=== PATIENT | male | born 1955 | race Caucasian/White ===

== ENCOUNTER → 2022-12-31 11:54 | Outpatient (CLI) | payer MEDICARE, SELFPAY ==
[2022-12-31 13:04] LABS: Appearance Urine UA CLEAR; Bilirubin Urine UA NEGATIVE (NEGATIVE); Color Urine UA YELLOW; Glucose Urine UA NEGATIVE (Negative); Ketones Urine UA NEGATIVE (NEGATIVE); Leukocyte Esterase Urine UA NEGATIVE (NEGATIVE); Nitrite Urine UA NEGATIVE (Negative); Occult Blood Urine UA NEGATIVE (Negative); Protein Urine UA NEGATIVE (Negative); Urobilinogen Urine UA 0.2 E.U./dL (0.2); pH Urine UA 6.5 (4.5-8.0)
[2022-12-31 13:22] LABS: Add Manual Diff / Slide Review NO; Basophils Absolute Auto 100 /uL (0-100); Basophils Percent Auto 1.4 % (0-2); Eosinophils Absolute Auto 200 /uL (0-450); Eosinophils Percent Auto 4.1 % (2-4); Hematocrit 41.4 % (41-53); Hemoglobin 14.2 g/dL (13.5-17.5); Lymphocytes Absolute Auto 1300 /uL (1100-4500); Lymphocytes Percent Auto 23.8 % (25-40); Mean Corpuscular HGB Conc 34.4 % (30-36); Mean Corpuscular Volume 93.2 fL (80-100); Monocytes Absolute Auto 400 /uL (0-900); Neutrophils Absolute Auto 3300 /uL (1500-7000); Neutrophils Percent Auto 62.7 % (50-75); Platelet Count 227 X10^3/uL (150-400); Red Blood Cell Count 4.44 X10^6/uL (4.5-5.9); Red Cell Distribution Width 12.6 % (11.6-14.8); White Blood Cell Count 5.3 X10^3/uL (4.5-11.0)
[2022-12-31 13:34] LABS: Bacteria Urine None Seen; Culture Indicated Urine Cult Not Indicated; RBC Urine None Seen (0-5/HPF); Squamous Epithelial Cell Urine 0-1 /HPF (0-5/HPF); WBC Urine None Seen (0-5/HPF)
[2022-12-31 13:36] LABS: BUN Creatinine Ratio 21.4 (6-22); Blood Urea Nitrogen 18 mg/dL (9-20); Calcium 9.3 mg/dL (8.4-10.2); Carbon Dioxide 31 mmol/L (22-32); Chloride 101 mmol/L (98-107); Estimated Glomerular Filt Rate > 60 mL/min (>60); Glucose 98 mg/dL (80-110); HEMOLYSIS < 15 (0-50); Potassium 4.5 mmol/L (3.4-5.1); Sodium 138 mmol/L (137-145)
[2023-01-01 11:00] LABS: x Labcorp Estim. Avg Glu (eAG) 108 mg/dL (.); x Labcorp Hemoglobin A1c 5.4 % (4.8-5.6)
== END ==
PROVIDERS: PCP Family Medicine; Referring Provider Orthopaedic Surgery; Visit Provider Orthopaedic Surgery
DX: Z01.818 Encounter for other preprocedural examination (principal); R73.9 Hyperglycemia, unspecified; Z01.812 Encounter for preprocedural laboratory examination; N39.0 Urinary tract infection, site not specified
CPT/HCPCS: 36415; 80048; 81001; 83036; 85025; 93005

== ENCOUNTER → 2023-03-19 13:49 | Outpatient (CLI) | payer MEDICARE, SELFPAY ==
[2023-03-19 14:58] LABS: Add Manual Diff / Slide Review NO; Basophils Absolute Auto 0 /uL (0-100); Basophils Percent Auto 0.5 % (0-2); Eosinophils Absolute Auto 300 /uL (0-450); Eosinophils Percent Auto 2.9 % (2-4); Hematocrit 39.3 % (41-53); Hemoglobin 13.6 g/dL (13.5-17.5); Lymphocytes Absolute Auto 1600 /uL (1100-4500); Lymphocytes Percent Auto 18.4 % (25-40); Mean Corpuscular HGB Conc 34.6 % (30-36); Mean Corpuscular Hemoglobin 32.3 PG (26-34); Mean Corpuscular Volume 93.4 fL (80-100); Monocytes Absolute Auto 500 /uL (0-900); Monocytes Percent Auto 5.7 % (3-14); Neutrophils Absolute Auto 6200 /uL (1500-7000); Neutrophils Percent Auto 72.5 % (50-75); Platelet Count 269 X10^3/uL (150-400); Red Blood Cell Count 4.21 X10^6/uL (4.5-5.9); Red Cell Distribution Width 12.7 % (11.6-14.8); White Blood Cell Count 8.6 X10^3/uL (4.5-11.0)
[2023-03-19 15:44] LABS: Thyroid Stimulating Hormone 3.07 uIU/mL (0.47-4.68)
[2023-03-19 15:45] LABS: Prostate Specific Antigen 4.09 ng/mL (0.10-4.00)
== END ==
PROVIDERS: PCP Family Medicine; Referring Provider Family Medicine; Visit Provider Family Medicine
DX: R97.20 Elevated prostate specific antigen [PSA] (principal); Z86.39 Personal history of other endocrine, nutritional and metabolic disease
CPT/HCPCS: 36415; 84153; 84443; 85025

== ENCOUNTER → 2023-08-25 09:30 | Outpatient (CLI) | payer MEDICARE, SELFPAY ==
--- NOTE | 2023-08-25 | DI.NM.S_ITS ---
PROCEDURE: NM BONE SCAN WHOLE BODY RADIOPHARMACEUTICAL: 20.2 mCi Tc-99m MDP IV. INDICATIONS: PAIN IN RIGHT KNEE TECHNIQUE: Delayed whole-body scintigrams were obtained approximately 3-4 hours after intravenous injection of radiotracer. Anterior and posterior views were acquired from vertex to feet. Additional left and right oblique views of the knees were obtained. COMPARISON: [facility] [place], CR, XR KNEE ARTHRITIC SERIES , 07/29/2023, 10:08. FINDINGS: Physiologic uptake is noted within the kidneys and bladder. Photopenia is identified in the medial compartments of the knees bilaterally consistent with hemiarthroplasty. There is increased uptake within the lateral compartments of the knees bilaterally, small bones of the feet, shoulder girdles, 1st CMC joints. Multiple areas of increased uptake are present within the cervical, and thoracic spine. IMPRESSION: Multifocal areas of uptake identified most suggestive of degenerative change. If concern persists for increased pain at the arthroplasty sites, triple phase bone scan is recommended. Dictated by: Clara Gill M.D. on 08/25/2023 at 16:13 Approved by: Clara Gill M.D. on 08/25/2023 at 16:15
== END ==
PROVIDERS: PCP Family Medicine; Referring Provider Orthopaedic Surgery; Visit Provider Orthopaedic Surgery
DX: M25.561 Pain in right knee (principal)
CPT/HCPCS: 78306; A9503

== ENCOUNTER → 2023-09-28 09:49 | Outpatient (CLI) | payer MEDICARE, SELFPAY ==
[2023-09-28 11:21] LABS: Add Manual Diff / Slide Review NO; Basophils Absolute Auto 100 /uL (0-100); Basophils Percent Auto 1.1 % (0-2); Eosinophils Absolute Auto 200 /uL (0-450); Eosinophils Percent Auto 3.3 % (2-4); Hematocrit 43.2 % (41-53); Hemoglobin 14.8 g/dL (13.5-17.5); Lymphocytes Absolute Auto 1600 /uL (1100-4500); Mean Corpuscular HGB Conc 34.1 % (30-36); Mean Corpuscular Hemoglobin 31.8 PG (26-34); Mean Corpuscular Volume 93.1 fL (80-100); Monocytes Absolute Auto 400 /uL (0-900); Monocytes Percent Auto 6.4 % (3-14); Neutrophils Absolute Auto 3400 /uL (1500-7000); Neutrophils Percent Auto 60.2 % (50-75); Platelet Count 229 X10^3/uL (150-400); Red Blood Cell Count 4.64 X10^6/uL (4.5-5.9); Red Cell Distribution Width 12.6 % (11.6-14.8); White Blood Cell Count 5.7 X10^3/uL (4.5-11.0)
[2023-09-28 11:25] LABS: HEMOLYSIS < 15 (0-50)
[2023-09-28 11:30] LABS: Albumin 4.5 g/dL (3.5-5.0); BUN Creatinine Ratio 19.8 (6-22); Blood Urea Nitrogen 16 mg/dL (9-20); Calcium 10.1 mg/dL (8.4-10.2); Carbon Dioxide 29 mmol/L (22-32); Chloride 101 mmol/L (98-107); Estimated Glomerular Filt Rate > 60 mL/min (>60); Glucose 97 mg/dL (80-110); Potassium 4.7 mmol/L (3.4-5.1); Sodium 138 mmol/L (137-145)
[2023-09-28 11:31] LABS: Hemoglobin A1C% w Est Avg Glu 5.1 % (4.0-6.0)
[2023-10-01 05:08] LABS: Prealbumin 28.4 mg/dL (17.6-36.0)
== END ==
LOC: LAB 09:53
PROVIDERS: PCP Family Medicine; Referring Provider Orthopaedic Surgery Adult Reconstructive Orthopaedic Surgery; Visit Provider Orthopaedic Surgery Adult Reconstructive Orthopaedic Surgery
DX: Z01.818 Encounter for other preprocedural examination (principal); Z01.812 Encounter for preprocedural laboratory examination; R73.9 Hyperglycemia, unspecified; E55.9 Vitamin D deficiency, unspecified; R77.0 Abnormality of albumin
CPT/HCPCS: 36415; 80048; 82040; 82306; 83036; 84134; 85025; 93005; 93010

== ENCOUNTER 2023-10-30 08:50 | Inpatient (IN) | payer MEDICARE, SELFPAY ==
[2023-10-21 09:41] VITALS: BMI 26.8
[2023-10-30] VITALS (15 sets, daily range): BP systolic 82–134; BP diastolic 47–88; PULSE 49–67; RESP 12–21; TEMP 36.1–37.2; O2SAT 92–99; BMI 26.8
--- NOTE | 2023-10-30 09:25 | DI.RAD.S_ITS ---
PROCEDURE: XR KNEE RT 1TO2V INDICATIONS: TKA TECHNIQUE: 2 view(s) of the knee acquired. COMPARISON: [facility], , KNEE 3V RIGHT, 02/27/2016, 9:33. FINDINGS: Bones: Patient is status post knee joint arthroplasty. Hardware components are in expected positions. Visualized bony structures are intact. Soft tissues: Overlying postoperative changes are noted. IMPRESSION: Expected post-operative appearance of a knee arthroplasty. Dictated by: Dc Cain M.D. on 10/30/2023 at 15:48 Approved by: Dc Cain M.D. on 10/30/2023 at 15:49
[2023-10-30] MEDS: LACTATED RINGERS 1,000 ML 42 ML IV ×2 (10:17→13:32)
[2023-10-30] MEDS: ACETAMINOPHEN 325 MG TABLET 975 MG PO (10:17)
[2023-10-30] MEDS: CELECOXIB 200 MG CAPSULE 400 MG PO (10:17)
--- NOTE | 2023-10-30 10:53 | PM.PREOP ---
Pre-operative Note Interval Note History & Physical reviewed/Exam performed by Physician: Yes Changes to H&P: No
--- NOTE | 2023-10-30 11:16 | SUR.PREOP ---
Block start time [1109] . Monitoring initiated and maintained throughout procedure. Oxygen and medications given per anesthesiologist instructions. Patient remained stable throughout procedure, no adverse reactions noted. Block end time [1111].
[2023-10-30] MEDS: TRANEXAMIC ACID 1,000 MG VIAL 1000 MG INJ ×2 (11:40→13:34)
[2023-10-30] MEDS: CEFAZOLIN 2 GM/100 ML PREMIX 100 ML IV ×2 (11:40→20:12)
--- NOTE | 2023-10-30 11:55 | SUR.OPER ---
Supine on padded OR bed. Pillow under head, arms secured on padded armboards <90 degree abduction. Safety belt across torso. Non-operative leg secured with tape over blanket over lower leg. Operative leg secured in Otto positioner. Foam padded brace at thigh of operative leg.
[2023-10-30] MEDS: ROPIVACAINE/EPI/CLONIDINE/KET 50 ML SYRINGE INJ (12:12)
--- NOTE | 2023-10-30 15:08 | PM.OP.1 ---
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 Post-op diagnosis: same Procedure & Clinicians Procedure: Revision right total knee arthroplasty with conversion from medial unicompartmental knee to total knee arthroplasty Same procedure as scheduled: Yes Surgeon: Nav Sheehan Powder Hand: Terra Block Anesthesia Type: Spinal, Peripheral nerve block and Local Operative Notes Tourniquet time (min): 96 Procedure in detail: Implants: Tre Persona Medial Congruent Total Knee Arthroplasty: Size 10 Cruciate Retaining Femoral Component Size G Tibial Component with 14 x 30 stem extension and multiple 3.5 mm screws underneath the base plate Size 16 Medial Congruent Polyethylene Insert Unresurfaced Patella Procedure Summary: 67-year-old male who had instability following prior unicompartmental knee replacement. He was evaluated by both Dr. Block and myself who both recommended conversion to total knee arthroplasty. He was noted to have mucoid degeneration throughout his ACL and anterior-posterior instability during surgery. Components were extracted along with the standard femoral and tibial resections. There was some bone loss in the posterior aspect of the medial femur. There was almost no bone loss on the tibia. A posterior medial release was performed for initial medial tightness in extension. The femoral component was temporarily put back in place in order to allow for gap balancing measurements on the femur which showed 5?. This was then recreated with an osteotome substituting for the bone loss in the posterior femur and the flexion gap was matched to the extension gap. The knee opened to 14 mm with 50 lb of pressure in extension and that was matched in flexion. There was laxity in flexion with a 14 mm polyethylene so a 16 mm polyethylene was utilized. Several holes were left from the pegs in the old unicompartmental knee as well as a posterior medial defect and these were filled with 3.5 mm screws to use as rebar. Procedure in Detail: This patient was seen preoperatively and evaluated for knee pain which was refractory to numerous nonoperative treatment modalities. Their pain correlated with radiographic changes demonstrating significant degeneration in the knee joint. The risks and benefits of continued nonoperative management versus operative management were discussed at length and all of the patient?s questions were answered. Additional educational materials providing further details beyond our discussion in clinic were provided via a publicly available patient education video which included the incidence of medical complications associated with total knee arthroplasty, reasons for revision following total knee arthroplasty, and patient satisfaction rates following total knee arthroplasty. That video can be accessed at [email or web address] . With this understanding of the risks inherent to the procedure, the patient elected to move forward with operative management. Following preoperative optimization, the patient was scheduled for surgery. The patient was met in the preoperative holding area the day of the procedure and all questions were answered. The patient?s nares were swabbed with betadine in order to decolonize them from MRSA. Informed consent was signed and the operative limb was marked with indelible ink.? The patient was brought back to the operating room where anesthesia was induced. The patient was transferred to the operating table and all bony prominences were padded. The operative site was prepped and draped in the usual sterile fashion. A second prep stick was utilized following drape placement. The incision was marked corresponding to the medial aspect of the tibial tubercle and the patella. Ioban was wrapped circumferentially around the knee. Prior to incision, tranexamic acid and cefazolin were administered. Templating images were displayed. A timeout procedure was performed verifying the patient?s identity, medical comorbidities, allergies, relevant medications, anesthesia type and the surgical plan. All present were in agreement. The assistance of a physician per diem physical therapist assistant was required for positioning, room setup, soft tissue retraction and wound closure. Without this assistance, the procedure would have been significantly more challenging and time consuming.?? The tourniquet was inflated prior to incision. I made an anterior incision over the knee which incorporated the old incision, dissected through the subcutaneous tissues and identified the lateral border of the VMO. Medial and lateral soft tissue flaps were developed. A medial parapatellar arthrotomy was performed ensuring that adequate capsular tissue would remain for closure at the conclusion of the procedure. The hip was brought into extension and the medial soft tissues were released off the joint line of the tibia. Tissue overlying the distal anterior femur was released to allow for later assessment for anterior notching but left in place. A portion of the retropatellar fat pad was excised while protecting the patellar tendon. The patella was everted. The patella was not resurfaced. Osteophytes were excised and a lateral facetectomy was performed. The patella was released from its everted position.?? I flexed the knee to 90 degrees and placed retractors to allow access to the notch. An opening reamer was used to gain access to the femoral canal and an intramedullary antonio was introduced into the canal. Diaphyseal fit was obtained in order to allow a distal femoral resection at 5 degrees relative to the anatomic axis, thereby aiming to achieve mechanical alignment of the eventual implant. A +1 resection was planned and assessed using an davis wing. I then made the cut using a sagittal saw. The lateral condyle was removed which allowed access to the lateral aspect of the medial unicompartmental femoral component. I used a small microsagittal saw to further resect the implant from the cement mantle. I then removed the femoral component and recut the remainder of the distal femoral cut on the medial side to match the lateral side. This provided additional access to the femoral notch. The ACL and PCL were excised. Retractors were placed on the lateral and medial tibia. I hyperflexed the knee while externally rotating it to sublux the tibia anteriorly. I placed a PCL retractor posteriorly and used this to provide additional anterior subluxation. The remainder of the PCL root was released. An intramedullary reamer was used in the ACL footprint to provide access to the tibial canal. An extramedullary guide was positioned to allow a resection perpendicular to the anatomic and mechanical axes of the tibia, thereby aiming to achieve mechanical alignment of the eventual implant. A +6 resection off the polyethylene of the medial unicompartmental knee was planned and the tibial cutting jig was pinned in place. I evaluated the cut depth, varus-valgus alignment and slope of the planned tibial resection and deemed them satisfactory. I cut the tibia with a sagittal saw while using retractors to protect the MCL, patellar tendon, and posterolateral structures.? I removed the lateral portion of the tibial cut and used a microsagittal saw to cut around the periphery of the medial unicompartmental knee tibial component. I was able to cut between the pegs in the prosthesis and free it up from the tibial surface. The knee was repositioned in extension and the Fuzion soft tissue balancing gauge was introduced. This demonstrated that there was tightness medially so a posterior medial release was performed. Returning to extension, I noted appropriate balance between the medial and lateral sides When 50 pounds of force was applied to the Fuzion device, the extension gap opened to 14 mm. I moved the knee into 90 degrees of flexion, and the Fuzion device was recalibrated by removing a 9 mm christel to allow assessment of the flexion gap. The Fuzion was placed perpendicular to the resected surface of the tibia and the resected surface of the distal femur. The femoral component was temporarily replaced and used to preliminarily test rotation which demonstrated there was balanced with 5? of external rotation. I then removed the femoral component and replaced it with an osteotome to allow drilling into the distal femur. Fifty pounds of traction was applied to match the tension of the extension gap. This externally rotated the femur to 5 degrees. Pins were placed in the 14 mm holes. The measured resection guide was placed over the pins to allow sizing. Appropriate sizing was determined and a 4-in-1 block was placed. This was double checked using the Fuzion device to ensure that it would open to an equal distance as the extension gap when the same amount of force was applied. The Fuzion block was also used to assess flexion gap symmetry. An davis wing was used to ensure there would be no anterior notching. Retractors were placed to protect the soft tissues during resection. Captured cuts were performed with a sagittal saw for the anterior and posterior femur as well as the corresponding chamfers.? Trial components were placed and the construct was assessed. Range of motion was assessed by ensuring the knee could achieve full extension and assessing maximum passive knee flexion by elevating the femur and allowing the heel to passively fall towards the buttock. Gap symmetry was assessed by stressing the medial and lateral compartments in both extension and flexion. Laxity was assessed in both extension and flexion and the polyethylene trial was adjusted with shims as necessary. Patellar tracking was assessed with knee flexion. Once satisfied with the construct, I moved forward with implant insertion. Lug holes were drilled in the femur and the tibia was prepped ensuring appropriate sizing and rotation relative to the tibial tubercle.??I noted that there were still holes from the tibial component in the cut tibial surface as well as a posterior medial defect from the area where the additional flow beyond the 3? I had cut for the total knee caused the posterior tibia to slope away. I used 5 3.5 mm screws to act as rebar in the defects. I ensured they were underneath the tibial surface. The bony ends were irrigated and cement was prepared. Portions of the anterior chamfer cut were utilized as cement restrictors in the femur and tibia where intramedullar rods had been utilized. Cement was placed on the entirety of the undersurface of both the tibial and femoral components. Cement was placed onto the dry tibia and pressurized into the cancellous bone. I impacted the tibial component into place. Cement was removed. The tibia was reduced underneath the femur and placed cement onto the dry surface of the resected femur. I placed the femoral component as well as the intended polyethylene trial. Cement was removed from around the femur. I brought the knee into extension and manually pressurized the construct by pushing on the heel while the cement dried. The knee was bathed in a dilute mixture of betadine and peroxide. A mixture of Ropivacaine, Epinephrine, Clonidine and Toradol was infiltrated throughout the soft tissues into structures including the VMO, patellar tendon, quadriceps tendon, MCL and femoral periosteum. A low adductor canal block was also performed using this mixture unless one had been placed preoperatively by anesthesia. The knee was copiously irrigated with pulse lavage. Once cement had been allowed to dry the knee was again trialed. Range of motion was assessed by ensuring the knee could achieve full extension and assessing maximum passive knee flexion by elevating the femur and allowing the heel to passively fall towards the buttock. Gap symmetry was assessed by stressing the medial and lateral compartments in both extension and flexion. Laxity was assessed in both extension and flexion and the polyethylene trial was adjusted with shims as necessary. Patellar tracking was assessed with knee flexion. The tourniquet was let down and the polyethylene trial was removed. I inspected the knee inspected for excess cement and any residual bleeding. Once hemostasis was achieved I inserted the final polyethylene and ensured appropriate engagement of the dovetail locking mechanism.?? The arthrotomy was closed with absorbable interrupted suture ensuring that this extended to the top of the arthrotomy. This was backed up with running barbed suture throughout the arthrotomy. The skin was closed with 2-0 and 3-0 sutures. Surgical glue was applied and a soft dressing was placed.?The sponge, instrument and needle counts were reported as being correct at the end of the case.??No obvious complications occurred. The patient was transferred from the operating table back to a stretcher. The patient emerged from anesthesia without difficulty and was taken to the PACU in a stable condition.? Plan for aftercare: Weightbearing as tolerated Mobilization as soon as the patient has recovered from anesthesia. If physical therapists are unavailable at the time the patient is ready to ambulate, then nursing staff should help patient ambulate Aspirin 81 twice per day for DVT prophylaxis Multimodal pain regimen with no IV opioids ordered Anticipate discharge home tomorrow Follow up at [facility] in 2 weeks Detailed postoperative instructions available at [email or web address]
[2023-10-30 15:46] LABS: Hematocrit 38.2 % (41-53); Hemoglobin 13.1 g/dL (13.5-17.5)
--- NOTE | 2023-10-30 16:35 | P.CONS_ITS ---
History of Present Illness Consult details Date Patient Seen: 10/30/23 Chief complaint: Right Total Knee Arthroplasty Narrative: Nader Carranza is a 67yo M with PMH of hypothyroidism who presents post-op after R total knee replacement with symptomatic hypotension. Patient states his BP normally runs in 120's sytolic, but during surgery he received propofol, versed then dipped to 86/50 requiring push of vasopressin. BP improved to 111/63 then dipped again to 92/57. Patient reports symptoms of lightheadedness, inability to speak and feeling terrible with the low BP. He was given 1L bolus in PACU then brought to the floor. He is currently in trendelenburg and BP has improved to 103/47. He is no longer lightheaded and says he can now speak. states she thinks his color has returned. He takes no BP meds, only synthroid. He is requesting something for pain because his knee is hurting quite a bit. He denies CP, SOB, NV, abd pain or diarrhea. Meds Home Medications and Allergies Home Medications Medication Instructions Recorded Confirmed Type ascorbic acid (vitamin C) 1,000 mg 2 gram PO DAILY 12/14/18 10/30/23 History tablet cholecalciferol (vitamin D3) 10 2,000 unit PO DAILY 12/14/18 10/21/23 History mcg (400 unit) tablet ibuprofen 200 mg tablet 800 mg PO Q4-6H PRN Pain 12/14/18 10/21/23 History multivitamin 2 tab PO DAILY 12/14/18 10/21/23 History [id number] palm-min 17 1 cap PO DAILY 12/14/18 10/21/23 History capsule (Prostate Therapy capsule) omega-3 fatty acids 1,000 mg See Rx Instructions PO DAILY 12/14/18 10/21/23 History capsule (Fish Oil Concentrate) acetaminophen 500 mg tablet 500 mg PO Q6H PRN Pain 10/21/23 10/21/23 History thyroid (pork) 120 mg tablet (COMMUNICATIONS STRATEGIST 30 mg PO DAILY 10/21/23 10/30/23 History Thyroid) Allergies Allergy/AdvReac Type Severity Reaction Status Date / Time No Known Drug Allergies Allergy Verified 10/30/23 10:15 Review of Systems Review of Systems Narrative: All other systems reviewed with the patient and are negative unless otherwise stated. Exam Vital Signs (past 8 hours): - 10/30/23 10:05 10/30/23 14:38 10/30/23 14:42 Temperature 98.6 F 98.9 F Pulse Rate 55 L 56 L 57 L Respiratory Rate 21 12 14 Blood Pressure 134/88 82/53 L 82/52 L Pulse Oximetry 99 94 94 Oxygen Delivery Method Room Air Room Air Room Air Oxygen Flow Rate 10/30/23 14:52 10/30/23 14:58 10/30/23 15:03 Temperature 97.8 F Pulse Rate 57 L 59 L 53 L Respiratory Rate 12 12 14 Blood Pressure 92/57 L 97/56 L 93/54 L Pulse Oximetry 96 95 92 Oxygen Delivery Method Room Air Room Air Room Air Oxygen Flow Rate 10/30/23 15:08 10/30/23 15:23 10/30/23 15:40 Temperature Pulse Rate 53 L 51 L 49 L Respiratory Rate 16 14 18 Blood Pressure 86/50 L 111/63 92/57 L Pulse Oximetry 94 95 93 Oxygen Delivery Method Room Air Room Air Room Air Oxygen Flow Rate 10/30/23 16:00 Temperature 97.5 F L Pulse Rate 52 L Respiratory Rate 15 Blood Pressure 103/47 L Pulse Oximetry 97 Oxygen Delivery Method Oxygen Flow Rate 0 Oxygen Delivery Method Room Air Oxygen Flow Rate 0 Narrative Exam Narrative: GEN: no acute distress, slightly pale HEENT: moist mucous membranes, PERRL NECK: trachea midline, no JVD CV: regular rate and rhythm, no murmurs PULM: clear bilaterally ABD: soft, nontender, nondistended, no organomegaly EXT: R leg with postop bandage around knee NEURO: awake, alert, oriented, no focal deficits Objective Labs 10/30/23 15:41 Labs: Laboratory Results - last 24 hr 10/30/23 15:41 Hgb 13.1 L Hct 38.2 L PFSH Medical History (Updated 10/21/23 @ 10:46 by Aisha Schumacher RN) Melanoma (~2013) Laceration (10/20/23) Hypothyroidism Elevated PSA Elevated cholesterol Blindness Surgical History (Updated 10/21/23 @ 10:49 by Aisha Schumacher RN) History of colonoscopy Status post left unicompartmental knee replacement Status post right unicompartmental knee replacement Social History household members: spouse Tobacco & Substance Use Smoking Status: Former smoker Tobacco: How many years used: 20 second hand exposure: No alcohol intake: current substance use type: marijuana (smoke, very lightly) Assessment & Plan Assessment & Plan narrative: # post-op symptomatic hypotension following R total knee replacement -BP down to 85/50 during surgery -likely due to propofol, received vasopressin intraop -now s/p 1L bolus in PACU -BP improving to 100's sytolic and patient's symptoms improved -can given another 1L bolus -check TSH -ortho following # hypothyroidism -continue home synthroid Medicine will continue to follow. Thank you for allowing us to participate in the care of this patient. Should you have any questions, do not hesitate to speak with us directly or call us.
[2023-10-30] MEDS: KETOROLAC 30 MG/ML VIAL IV (16:53)
[2023-10-30] MEDS: OXYCODONE IR 5 MG TABLET PO ×2 (16:56→20:11)
[2023-10-30] MEDS: SODIUM CHLORIDE 0.9% 1,000 ML 1000 ML IV (16:56)
[2023-10-30] MEDS: LACTATED RINGERS 1,000 ML 100 ML IV (16:56)
[2023-10-30] MEDS: ACETAMINOPHEN 325 MG TABLET 650 MG PO ×2 (16:56→22:37)
[2023-10-30] MEDS: DOCUSATE 100 MG CAPSULE PO (20:11)
[2023-10-30] MEDS: ASPIRIN EC 81 MG TABLET PO (20:11)
[2023-10-30] MEDS: FISH OIL 1,000 MG CAPSULE 2000 MG PO (20:11)
[2023-10-31] MEDS: TRAMADOL 50 MG TABLET PO ×3 (01:59→12:06)
[2023-10-31 04:49] VITALS: BP 126/68; PULSE 61; RESP 17; TEMP 35.9; O2SAT 95
[2023-10-31] MEDS: CEFAZOLIN 2 GM/100 ML PREMIX 100 ML IV (05:14)
[2023-10-31] MEDS: ACETAMINOPHEN 325 MG TABLET 650 MG PO ×2 (05:14→11:26)
[2023-10-31] MEDS: THYROID, PORK 30 MG TABLET PO (05:14)
[2023-10-31 05:43] LABS: Add Manual Diff / Slide Review NO; Basophils Percent Auto 0.1 % (0-2); Eosinophils Percent Auto 0.2 % (2-4); Hematocrit 35.8 % (41-53); Hemoglobin 12.3 g/dL (13.5-17.5); Lymphocytes Percent Auto 7.5 % (25-40); Mean Corpuscular HGB Conc 34.5 % (30-36); Mean Corpuscular Volume 92.7 fL (80-100); Monocytes Percent Auto 3.8 % (3-14); Neutrophils Percent Auto 88.4 % (50-75); Platelet Count 208 X10^3/uL (150-400); Red Blood Cell Count 3.86 X10^6/uL (4.5-5.9); Red Cell Distribution Width 12.3 % (11.6-14.8); White Blood Cell Count 13.9 X10^3/uL (4.5-11.0)
[2023-10-31 05:44] LABS: Basophils Absolute Auto 0 /uL (0-100); Eosinophils Absolute Auto 0 /uL (0-450); Lymphocytes Absolute Auto 1000 /uL (1100-4500); Monocytes Absolute Auto 500 /uL (0-900); Neutrophils Absolute Auto 12300 /uL (1500-7000)
[2023-10-31 05:59] LABS: BUN Creatinine Ratio 21.8 (6-22); Blood Urea Nitrogen 17 mg/dL (9-20); Calcium 8.7 mg/dL (8.4-10.2); Carbon Dioxide 23 mmol/L (22-32); Chloride 101 mmol/L (98-107); Estimated Glomerular Filt Rate > 60 mL/min (>60); Glucose 179 mg/dL (80-110); HEMOLYSIS < 15 (0-50); Magnesium 1.7 mg/dL (1.6-2.3); Sodium 133 mmol/L (137-145)
[2023-10-31] MEDS: OXYCODONE IR 5 MG TABLET PO ×3 (06:56→13:07)
--- NOTE | 2023-10-31 07:36 | PM.PN.1 ---
Subjective Subjective Interval history: BP improved to 120's systolic. He feels well this morning and is looking forward to working with PT/OT. Patient ok to dc home from medicine perspective. Exam Vital Signs (past 8 hours): - 10/31/23 04:49 Temperature 96.6 F L Pulse Rate 61 Respiratory Rate 17 Blood Pressure 126/68 Pulse Oximetry 95 Oxygen Flow Rate 0 Oxygen Delivery Method Room Air Oxygen Flow Rate 0 Narrative Exam Narrative: GEN: no acute distress, slightly pale HEENT: moist mucous membranes, PERRL NECK: trachea midline, no JVD CV: regular rate and rhythm, no murmurs PULM: clear bilaterally ABD: soft, nontender, nondistended, no organomegaly EXT: R leg with postop bandage around knee NEURO: awake, alert, oriented, no focal deficits Objective Labs 10/31/23 05:18 10/31/23 05:18 Labs: Laboratory Results - last 24 hr 10/30/23 10/31/23 15:41 05:18 WBC 13.9 H RBC 3.86 L Hgb 13.1 L 12.3 L Hct 38.2 L 35.8 L MCV 92.7 MCH 32.0 MCHC 34.5 RDW 12.3 Plt Count 208 Neut % (Auto) 88.4 H Lymph % (Auto) 7.5 L [place] % (Auto) 3.8 Eos % (Auto) 0.2 L Baso % (Auto) 0.1 Neut # (Auto) 48490 H Lymph # (Auto) 1000 L [place] # (Auto) 500 Eos # (Auto) 0 Baso # (Auto) 0 Sodium 133 L Potassium 4.0 Chloride 101 Carbon Dioxide 23 BUN 17 Creatinine 0.78 Estimated GFR > 60 BUN/Creatinine Ratio 21.8 Glucose 179 H Calcium 8.7 Magnesium 1.7 TSH 1.00 PFSH Medical History (Updated 10/21/23 @ 10:46 by Aisha Schumacher RN) Melanoma (~2013) Laceration (10/20/23) Hypothyroidism Elevated PSA Elevated cholesterol Blindness Surgical History (Updated 10/21/23 @ 10:49 by Aisha Schumacher RN) History of colonoscopy Status post left unicompartmental knee replacement Status post right unicompartmental knee replacement Social History household members: spouse Smoking Status: Former smoker Tobacco: How many years used: 20 second hand exposure: No alcohol intake: current substance use type: marijuana (smoke, very lightly) Assessment & Plan Assessment & Plan narrative: # post-op symptomatic hypotension following R total knee replacement, now resolved -BP down to 85/50 during surgery -likely due to propofol, received vasopressin intraop -now s/p 1L bolus in PACU -BP improving to 100's sytolic and patient's symptoms improved -gave another 1L bolus -ortho following -BP now improved to 120's systolic # hypothyroidism -continue home synthroid -TSH normal Medicine will sign off today. Thank you for allowing us to participate in the care of this patient. Should you have any further questions, do not hesitate to speak with us directly or call us. Quality VTE Deep Vein Thrombosis/Pulmonary Embolism Present on Admission: No
[2023-10-31 08:00] VITALS: BP 117/69; PULSE 62; RESP 16; TEMP 36.2; O2SAT 93
[2023-10-31] MEDS: ASPIRIN EC 81 MG TABLET PO (08:14)
--- NOTE | 2023-10-31 08:16 | P.DS_ITS ---
History of Present Illness History of Present Illness Date Patient Seen: 10/31/23 Time Patient Seen: 08:16 Chief complaint: Knee pain Discharge Providers Provider Date of admission: 10/30/23 08:50 Discharge Date: 10/31/23 Primary care physician: Doctor Emelina MD Consults: 10/30/23 16:27 Consult to Discharge Planning Routine Comment: Consult to Occupational Therapy Evaluate & Treat Comment: Physician Instructions: Evaluate and treat Consult to Physical Therapy Evaluate & Treat Comment: Physician Instructions: postop TKA protocol 10/30/23 16:33 Consult to Hospitalist Service Routine Comment: Consulting Provider: Nirmal Hagen Reason for consultation: post-op hypotension Has provider been notified: Yes Discharge provider: Brian Farley PA-C Summary Hospital Course Discharge Diagnosis: 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, right Hospital Course: Revision right total knee arthroplasty with conversion from medial unicompartmental knee to total knee arthroplasty Same procedure as scheduled: Yes Surgeon: Nav Sheehan Entry Level Civil Engineer: Terra Block Anesthesia Type: Spinal, Peripheral nerve block and Local Operative Notes Tourniquet time (min): 96 Procedure in detail: Implants: Tre Persona Medial Congruent Total Knee Arthroplasty: * Size 10 Cruciate Retaining Femoral Component * Size G Tibial Component with 14 x 30 stem extension and multiple 3.5 mm screws underneath the base plate * Size 16 Medial Congruent Polyethylene Insert * Unresurfaced Patella Patient admitted to the hospital for revision right total knee arthroplasty with conversion from medial unicompartmental knee to total knee arthroplasty. Patient consented to the same. Patient underwent revision total knee arthroplasty October 30, 2023. Patient back in his room recovering well as in stable condition. Consultation by hospitalist yesterday evening for hypotension. Postop symptomatic hypotension following right total knee replacement felt to be likely due to propofol, received vasopressin intraop, BP improving. Patient is seen by hospitalist morning and has been cleared for discharge. Patient will mobilize with physical therapy. Multimodal pain management. Aspirin 81 mg b.i.d. for DVT prophylaxis. Discharge home today after physical therapy if safe for home environment. Status at Discharge Cognitive/behavioral status at discharge: at baseline, oriented Functional status at discharge: uses cane/walker Overall status at discharge: patient is progressing back to baseline Exam Vital Signs (past 8 hours): - 10/31/23 04:49 Temperature 96.6 F L Pulse Rate 61 Respiratory Rate 17 Blood Pressure 126/68 Pulse Oximetry 95 Oxygen Flow Rate 0 Oxygen Delivery Method Room Air Oxygen Flow Rate 0 Narrative Exam Narrative: 67-year-old male sitting up in bed having breakfast. Patient is in no apparent distress. Right knee dressing is clean, dry and intact. Motor functions intact distal right lower extremity. Sensation grossly intact to light touch right lower extremity. Const General: cooperative and comfortable Nutritional Appearance: average body habitus Resp Effort & Inspection: normal respiratory effort and able to speak in complete sentences Objective Labs 10/31/23 05:18 10/31/23 05:18 Labs: Laboratory Results - last 24 hr 10/30/23 10/31/23 15:41 05:18 WBC 13.9 H RBC 3.86 L Hgb 13.1 L 12.3 L Hct 38.2 L 35.8 L MCV 92.7 MCH 32.0 MCHC 34.5 RDW 12.3 Plt Count 208 Neut % (Auto) 88.4 H Lymph % (Auto) 7.5 L [place] % (Auto) 3.8 Eos % (Auto) 0.2 L Baso % (Auto) 0.1 Neut # (Auto) 78303 H Lymph # (Auto) 1000 L [place] # (Auto) 500 Eos # (Auto) 0 Baso # (Auto) 0 Sodium 133 L Potassium 4.0 Chloride 101 Carbon Dioxide 23 BUN 17 Creatinine 0.78 Estimated GFR > 60 BUN/Creatinine Ratio 21.8 Glucose 179 H Calcium 8.7 Magnesium 1.7 TSH 1.00 PFSH Medical History Melanoma (~2013) Laceration (10/20/23) Hypothyroidism Elevated PSA Elevated cholesterol Blindness Surgical History (Updated 10/21/23 @ 10:49 by Aisha Schumacher RN) History of colonoscopy Status post left unicompartmental knee replacement Status post right unicompartmental knee replacement Social History household members: spouse Smoking Status: Former smoker Tobacco: How many years used: 20 second hand exposure: No alcohol intake: current substance use type: marijuana (smoke, very lightly) Discharge Assessment & Plan Assessment and Plan Assessment: Patient progressing as expected Plan of Treatment: Weight-bearing as tolerated Aspirin 81 mg twice daily Multimodal pain management Follow up outpatient orthopedic clinic in 2 weeks Discharge home today after physical therapy if safe for home environment. Discharge Plan Discharge orders & Medications Discharge Orders: Discharge (Order); Ordered 10/31/23 Ordered By: Brian Farley Prescriptions: New aspirin 81 mg Tablet,Delayed Release (Dr/Ec) 81 mg PO BID Qty: 60 0RF Continued ascorbic acid (vitamin C) 1,000 mg tablet 2 gram PO DAILY cholecalciferol (vitamin D3) 400 unit tablet 2,000 unit PO DAILY omega-3 fatty acids [Fish Oil Concentrate] 1,000 mg capsule See Rx Instructions PO DAILY Patient Comments: 4,000 mg PO DAILY; Rx Instructions: 4,000 mg PO DAILY; multivitamin tablet 2 tab PO DAILY Prostate Therapy capsule 1 cap PO DAILY ibuprofen 200 mg tablet 800 mg PO Q4-6H PRN (Reason: Pain) thyroid (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) [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] 120 mg Tablet 30 mg PO DAILY acetaminophen 500 mg Tablet 500 mg PO Q6H PRN (Reason: Pain) Discontinued meloxicam 15 mg tablet 15 mg PO DAILY Follow up/Referrals: Emelina,MD Phylicia [Primary Care Provider] - Nav Sheehan MD [Physician] - 11/13/23 11:00 am (Follow up w/ LARISSA Rosen, at [facility] in [place].) Activity Restrictions/Additional Instructions: * Detailed postoperative instructions available at [email or web address] Diet/Activity/Treatments Diet: Diet as Tolerated Activity: Weight-bearing as tolerated Other treatments: h [email or web address] Skin/Wound/Dressing Care Dressing: Keep dressing clean and dry Visit Report/Discharge Packet Instructions: DI for Heart Failure, DI for Knee Replacement, DI for Prescription Opioid Use Stand Alone Forms: Patient Portal/API, Stroke Signs & Symptoms, Surgery Discharge Discharge Data Primary Care Provider: Emelina, Quality [facility]TE Deep Vein Thrombosis/Pulmonary Embolism Present on Admission: No
--- NOTE | 2023-10-31 08:45 | PT.IIE ---
Current Diagnoses Pain due to internal orthopedic prosthetic devices, implants and grafts, initial encounter (10/30/23) Surgery Performed Operation Date: 10/30/23 11:00 Actual Procedures p Total Knee Arthroplasty Revision(Right) - Nav Sheehan MD Surgical History (Last Updated 10/21/23 @ 10:49 by Aisha Schumacher RN) History of colonoscopy Status post left unicompartmental knee replacement Status post right unicompartmental knee replacement Medical History (Last Reviewed 10/31/23 @ 08:19 by Brian Farley PA-C) Blindness Elevated cholesterol Elevated PSA Hypothyroidism Laceration (10/20/23) Melanoma (~2013) Physical Therapy Inpatient Evaluation/Re-Eval M1 PT/OT-IP Prior Functional Status Start: 10/31/23 12:23 Freq: NEEDED Status: Active Protocol: Document 10/31/23 08:45 AB (Rec: 10/31/23 12:42 AB [id number]) Medical Review Prior Functional Status Medical History Reviewed Yes Communication able to make needs known Mobility and Gait pt stated that he was modified independent with all mobilities and ambulation using loftstrand crutches Social History Household Members spouse Living Arrangements House Number of Floors (Floors) Two Floors Number of Stairs To Enter/Railing? has 3 steps R rail to enter has a chair/stair lift to get to 2nd level bedroom Home Environment High Toilet,Walk in Shower Home Equipment Front Wheel Walker,Four Wheel Walker,Crutches,Hand Held Shower,Grab Bars Near Toilet, Grab Bars In Shower M2 PT-IP Current Condition Start: 10/31/23 12:23 Freq: NEEDED Status: Active Protocol: Document 10/31/23 08:45 AB (Rec: 10/31/23 12:42 AB [id number]) Physical Therapy Current Condition Current Condition Evaluation Date 10/31/23 Treatment Diagnosis s/p R TKA revision; difficulty in walking Onset Date 10/30/23 M3 PT-IP Subjective Start: 10/31/23 12:23 Freq: NEEDED Status: Active Protocol: Document 10/31/23 08:45 AB (Rec: 10/31/23 12:42 AB [id number]) Subjective Physical Therapy Visit Type Type Initial Evaluation Visit Start Time 08:45 Visit Stop Time 09:45 Number of FACULTY RESEARCH PHYSICIAN Visits 0 Physical Therapy Visit Comments Patient Comments pt is agreeable to do PT Therapy Pain Assessment Pain When Pain Assessed At Rest Pain Present Pain Present Pain Reported Location R knee Intensity 5 Scale Used Numeric (0 - 10) Pain Management Techniques Apply Cold,Distraction, Modification of Treatment,Re- positioning,Timing of Activity with Medications M4 PT-IP Mobility and Gait Start: 10/31/23 12:23 Freq: NEEDED Status: Active Protocol: Document 10/31/23 08:45 AB (Rec: 10/31/23 12:42 AB [id number]) PT-Bed Mobility Assessment Supine to Sit Supine to Sit Standby Assistance Sit to Supine Sit to Supine Standby Assistance PT-Transfer Assessment Sit to and From Stand Sit to and from Stand Contact Guard Assistance,1 Person Assistance,Use of Upper Extremities Equipment Transfer Assistive Device Gait Belt,Front Wheeled Walker ,Forearm Crutches Orthotic/Prosthetic Devices or Brace: No Transfers Transfer Destination Chair Transfer Technique ambulated Transfer Ability Level of Assist Standby Assistance,Contact Guard Assistance,1 Person Assistance,Use of Upper Extremities Comments Mobility Comments pt supine in bed and agreeable to do PT. obtained PLOF and home set up from pt. BP in supine: 127/63. pt completed supine to sit SBA. able to sit on EOB SBA. pt initially with increase RLE guarding and holding LE in extension with initial sitting on EOB. educated pt on functional stretching and to decrease guarding on RLE. pt eventually let RLE down on the floor. pt completed sit to stand CGA. cued for stability and R quads activation. pt ambulated in room using FWW ~ 20 ft. sat on chair. assessed mobility using his forearm crutches. pt ambulated in room with forearm crutches ~ 20 ft CGA. cued for R quads contraction. pt can be impulsive. cued to slow down. educated pt with up/down stairs and pt stated that he has been using his crutches for the stairs. pt completed sit to stand from EOB SBA and ambulated towards platform step using crutches SBA to CGA. pt completed up/ down platform step x 4 sets CGA to min A with one incidence of LOB but with recovery. educated pt on safety and knee stability. pt ambulated in the hallway using crutches ~ 50 ft SBA to CGA. completed up/down platform step again using crutches CGA without LOB. pt ambulated back to the room and sat on the chair. positioned on the chair. call light and table placed within reach. pt refused caregiver training and stated that his spouse will be able to assist him and he can instruct her on what to do. informed pt to use FWW for ambulation and only use crutches for stair and pt agreed. Gait Assessment Gait Gait Assistance Required: Standby Assistance,Contact Guard Assist Distance (Feet) 50 Able to Maintain Weight Bearing Status Yes During Gait Assistive Devices Assistive Device Gait Belt,Front Wheeled Walker ,Forearm Crutches Orthotic/Prosthetic Devices or Brace: No Gait Deviations General Gait Pattern Antalgic,Decreased Stride Length,Decreased Feet Clearance Factors Limiting Gait Function Factors Limiting Gait Function Decreased Activity Tolerance, Decreased Strength,Limited Range of Motion,Pain,Poor Balance,Poor Safety Awareness Stair Climbing Assessment Evaluation Level of Assist On Stairs Contact Guard Assistance, Minimal Assistance,1 Person Assistance Devices Stair Climbing Assistive Devices Forearm Crutches Technique/Endurance Stair Climbing Direction Ascend and Descend Stair Climbing Technique Step to Step Number of Steps Climbed 1 Query Text: Stair Climbing Set # Repetitions (reps) 5 PT-Balance Assessment Sitting Balance and Reactions Static Sitting Balance Ability Normal Dynamic Sitting Balance Ability Good Standing Balance and Reactions Static Standing Balance Ability Fair Dynamic Standing Balance Ability Fair Device Used crutches M5 PT-IP Objective Assessments Start: 10/31/23 12:23 Freq: NEEDED Status: Active Protocol: Document 10/31/23 08:45 AB (Rec: 10/31/23 12:42 AB [id number]) Orientation Orientation/Cognition Level of Alertness Alert Orientation Name,Place,Situation Language Function Ability No Deficits Noted Safety Awareness Decreased Safety Awareness Memory Description No Deficits Noted Gross Range of Motion Lower Extremity ROM Impairments R knee flexion: ~ 60 deg r knee extension: ~ 10 deg less to 0 Strength Lower Extremity Strength Assessment Right Impaired Hip 3+/5 Knee 3+/5 Sensation Assessment Sensation Gross Sensation WNL Muscle Tone Muscle Tone WNL Yes M6 PT-IP Treatment Start: 10/31/23 12:23 Freq: NEEDED Status: Active Protocol: Document 10/31/23 08:45 AB (Rec: 10/31/23 12:42 AB [id number]) Physical Therapy Treatment Education Education Provided Precautions,Weight Bearing Status,Post-Op Packet,Safety M7 PT-IP Assessment and Plan Start: 10/31/23 12:23 Freq: NEEDED Status: Active Protocol: Document 10/31/23 08:45 AB (Rec: 10/31/23 12:42 AB [id number]) PT Summary Assessment and Plan Potential Rehabilitation Potential Fair Status of Condition at Evaluation Evolving Summary Impairments Pain,ROM,Strength,Balance, Coordination,Sensation,Tone, Cognition,Bed Mobility, Transfers,Gait,Activity Tolerance Assessment Summary pt is a 67 y/o M s/p R TKA revision POD 1. pt is WBAT. pt requiring SBA to CGA with mobility using FWW or crutches . pt plans to go home and spouse to assist him at home. pt has outpt PT set up. pt may go home when medically stable. Goals Bed Mobility Goal Independent Transfer Goal Independent,Crutches,Front Wheeled Walker Gait Goal Independent,Crutches,Front Wheel Walker Gait Distance 300 Other Goals up/down 3 steps using crutches SBA Days to Meet Goals 5 Frequency of Treatment Frequency Of Treatment Twice a Day Treatment Plan Physical Therapy Treatment Plan Bed Mobility Training,Transfer Training,Gait Training, Therapeutic Exercise,Balance Retraining,Post Op Education, Discharge Planning,Hot or Cold Pack,Neuromuscular Re-ed, Coordination Retraining,Manual Therapy Weight Bearing Status Weight Bearing Status Weight Bear as Tolerated Allowed Weight Bearing Amount (enter % RLE WBAT or #) (%) Recommendations To Nursing Amount of Assist Needed 1 Person Assist Discharge Recommendations PT Discharge Recommendations Home with Assistance, Outpatient PT Transportation Needs at Discharge Private Vehicle
[2023-10-31] MEDS: MAGNESIUM CHLORIDE 64 MG TABLET 128 MG PO (10:12)
[2023-10-31] MEDS: polyethylene glycoL 3350 17 GM POWD.PACK PO (10:17)
--- NOTE | 2023-10-31 13:30 | PC.NURSE ---
Pt left with his crutches, cellphone, shoes, jacket, and ice machine. Pt and spouse verbalized understanding of D/C instructions, when to follow up with surgeon, when to return to the ED if needed and when to contact the surgeon/surgeon's office. All questions answered at the time of D/C. Pt A&Ox4 at time of D/C and able to self transfer from the W/C into the POV.
--- NOTE | 2023-10-31 15:08 | CM.DANOTE ---
Initial DCP Assessment Note Reviewed EMR and team rounds for pt's medical status and anticipated d/c needs. Pt left the building prior to this FAMILY SPECIALIST's ability to meet with him in person. No needs were identified during his stay for d/c resources or OP referral needs. Payor: Medicare Attending: Dr. Sheehan Pt is a 67 year-old M post-op day 1 following his total R-knee arthroplasty. Plan is to d/c home today with family providing transport. F/u with Ortho OP and OP PT. Pt has all required DME in the home for his initial recovery needs. Discharge Planning/Care Management Advanced directive, confirm from FAMILY Start: 10/30/23 17:30 Freq: Q24H Status: Discharge Protocol: Document 10/30/23 17:30 MM (Rec: 10/30/23 18:22 MM [id number]) Advance Directive, confirm on record Time 18:21 Person contacted Pt and Frank Copy received No CM Discharge Assessment Start: 10/31/23 15:04 Freq: Status: Discharge Protocol: Document 10/31/23 15:04 DPL (Rec: 10/31/23 15:07 DPL [id number]) Discharge Planning Assessment Assigned Draw Tender FARIDEH Bhatt Advance Directives? Yes: POLST Advance Directives on File No History Provided By Medical Record Has Patient been admitted in last 30 No days? Prior Living Arrangements House Household Members spouse Type of transporation used prior to Drives own vehicle admit Independent with ADL's Yes Is patient alert and oriented? Yes Community Services used prior to Physical Therapy admission: DME Already Rented / Owned Bath Bench,Elevated Toilet Seat,FWW / Walker,Crutches Comment No idenfied d/c needs identified at this time. Barriers to Discharge No Discharge Plan Home Community Services Physical Therapy Referrals Initiated None needed Whiteboard Updated in Patient Room with Yes name and ext. # of Draw Tender Review Status In Process Next Review Type Continued Stay Review Pre-Anesthesia Assessment Start: 10/21/23 09:41 Freq: Status: Discharge Protocol: Document 10/21/23 09:41 CAB (Rec: 10/21/23 11:00 CAB [id number]) Pre-Anesthesia Assessment Patient Information Reviewed Via Phone Assessment Assessment Completed With Patient Diagnostic Results BMP/CMP,CBC,EKG Comment Labs/EKG @ [facility] 09/28/23 Primary Care Provider Jonnathan Myers Seen Specialist in Last 12 Months Yes Specialist Seen Director Of Convention Services,General surgeon, Orthopedist Primary Language Turkmen Toll Repairer Central Office Required No Height 182.88 cm Weight 89.811 kg Body Mass Index (BMI) 26.8 Hearing Ability Normal Visual Impairment No Limitations Visual Assist None Dentition Type Teeth, Natural Present,Dental Implants Barriers to Learning None Hx Anesthesia Reactions No Hx Family Anesthesia Reaction No Hx Malignant Hyperthermia No Hx Blood Transfusions No Anesthesia Review Requested No Weekend Caregiver No alcohol intake current alcohol intake frequency a few times a week Smoking Status Former smoker how long ago did patient quit smoking Quit 30 years ago Substance Use Type marijuana Comment Edibles, advised not to smoke marijuana 24 hours prior Pain Present Pain Reported Musculoskeletal Symptoms Abnormal Gait,Difficulty Walking,Joint Pain History of Falling (Recent or History of No ) Patient is completely paralyzed or No completely immobile Prosthesis or Orthotic Device Crutches Mental Status Oriented to own ability Is patient on oxygen? No Does patient have ROWE/SOB No Hx Sleep Apnea No Currently Taking a Beta [place] No Hx Chest Pain No Hx SOB No Hx Syncope or Dizziness No Anti-Coagulant Therapy No Has a Counter Manager No Cardiac Testing No Hx Pacemaker/ICD No Pacemaker Rep Required? No Cardiac Clearance Received Not Applicable Diet Type At Home Regular Dysphagia No Gastrointestinal Symptoms Reflux Bladder Pattern Incontinent Urinary Catheter Present No Hx Urinary Self Catheterization No Diabetes No HgbA1C 5.1 Date 09/28/23 Hx Drug Resistant Organism No Presence of External or Internal Medical Yes: Waldemar knees Devices Received a COVID vaccine? Yes Received all doses? No Marital Status Lives With spouse Current Living Arrangements House Number of Floors (Floors) Two Floors Support System Spouse Does the Patient Have Assistance After Yes Surgery Patient Discharge Plan Description Return Home Comment Pt advised same day surgery per surgeon Feels Safe in Current Environment Yes Been Physically Hurt or Threatened By a No Person in Current Environment Do you have thoughts of harming yourself None or others? Are you currently considering suicide? No Do you have a plan to hurt yourself or No Plan others? Do You Have Any Spiritual Beliefs That No May Affect Your HC Choices? Do You Have Any Cultural Practices That No May Affect Your HC Choices? Who Can We Speak to About Patient's Care Family, friends Identifying Code for Release of Patient Declines to issue Information Health Care Proxy/Next of Kin Joyce () Health Care Proxy Emergency Contact Name Joyce () Emergency Contact Advance Directives? Yes: POLST Advance Directives on File No Requested Patient Bring Advanced Yes Directives DOS Power of Digitizer Operator Yes Power of Digitizer Operator Name Joyce () Power of Digitizer Operator PAC Instructions Assistance for 24 hours post- op,Durable medical equipment, Medications to take/avoid, Nasal antibiotic,No ETOH/ petroleum product on skin DOS, NPO,Post-op transportation,Pre -surgical wash,Sensory aids, Sturdy shoes/comfortable clothes,Do not bring valuables and remove jewelry
== END 2023-10-31 13:15 | disposition home or self-care (01) | DRG 468 ==
PROVIDERS: Student in an Organized Health Care Education/Training Program; Admitting Provider Orthopaedic Surgery Adult Reconstructive Orthopaedic Surgery; Referring Provider Orthopaedic Surgery Adult Reconstructive Orthopaedic Surgery; Visit Provider Orthopaedic Surgery Adult Reconstructive Orthopaedic Surgery
PROC: 0SPC0JZ Removal of Synthetic Substitute from Right Knee Joint, Open Approach (ICD-10-PCS; principal; 2023-10-30 11:00)
DX: T84.022A Instability of internal right knee prosthesis, initial encounter (principal); I95.81 Postprocedural hypotension; E03.9 Hypothyroidism, unspecified
CPT/HCPCS: 36415; 64450; 73560; 80048; 83735; 84443; 85014; 85018; 85025; 87070; 87075; 87205; 97116; 97161; 97530; C1776; A9270; J0690; J1100; J1885; J2250; J2405; J2704; J3010